=== PATIENT | female | born 1950 | race Caucasian/White ===

== ENCOUNTER 2020-11-19 08:33 | Day surgery (SDC) | payer MEDICARE ==
[~2020-11-19] VITALS: Ht 160 cm; Wt 64.5 kg
[~2020-11-19 08:33] MED LIST: BUPR100 PO; RANI150 PO
[2020-11-19] MEDS ORDERED: LISI5 PO (08:54)
[2020-11-19] MEDS ORDERED: NAPR220 PO (09:03)
[2020-11-19] MEDS ORDERED: SILVADENE20 GM TOP (09:04)
--- NOTE | 2020-11-19 10:24 | NUR ---
11/19/20 1024 Vickie Cochran EPI 0.15MG MIXED WITH BUPIVACAINE 0.5% 30ML FOR A MIXTURE OF BUPIVACAINE 0.5% W/EPI 1:200,000
== END 2020-11-19 11:44 | disposition home or self-care (01) ==
LOC: ORSCSDS 08:33
PROVIDERS: Podiatrist Foot & Ankle Surgery
PROC: 0JCQ0ZZ Extirpation of Matter from Right Foot Subcutaneous Tissue and Fascia, Open Approach (ICD-10-PCS; principal; 2020-11-19 10:00)
DX: S91.134A Puncture wound without foreign body of right lesser toe(s) without damage to nail, initial encounter (principal); F17.210 Nicotine dependence, cigarettes, uncomplicated; Z79.899 Other long term (current) drug therapy; I10 Essential (primary) hypertension
CPT/HCPCS: 88305; J0171; J0690; J1100; J2250; J2370; J2405; J2704; J3010; J7120

== ENCOUNTER 2021-09-07 13:47 | Inpatient (IN) | payer OTHER, MEDICARE ==
[~2021-09-07] VITALS: Ht 162.6 cm; Wt 65.8 kg
[~2021-09-07 13:47] MED LIST changes: +LISI5 PO; +NAPR220 PO; +SILVADENE20 GM TOP
[2021-09-07 19:40] LABS: Influenza A, PCR NEGATIVE (NEGATIVE); Influenza B, PCR NEGATIVE (NEGATIVE); Resp Syncytial Virus, PCR NEGATIVE (NEGATIVE); SARS-Cov-2 (COVID-19) PCR, MMC NEGATIVE (NEGATIVE)
[2021-09-07 21:20] LABS: BASOPHILS ABSOLUTE AUTO 0.07 K/mm3 (0.00-0.23); BASOPHILS PERCENT AUTO 1 % (0-2); EOSINOPHILS ABSOLUTE AUTO 0.03 K/mm3 (0.00-0.68); EOSINOPHILS PERCENT AUTO 0 % (0-6); Hematocrit 48.1 % (33.0-51.0); Hemoglobin 15.1 g/dL (11.5-16.0); IMMATURE GRAN ABSOLUTE AUTO 0.07 K/mm3 (0.00-0.10); IMMATURE GRAN PERCENT AUTO 1 % (0-1); LYMPHOCYTES ABSOLUTE AUTO 1.21 K/mm3 (0.84-5.20); LYMPHOCYTES PERCENT AUTO 15 % (21-46); MONOCYTES ABSOLUTE AUTO 0.53 K/mm3 (0.16-1.47); MONOCYTES PERCENT AUTO 7 % (4-13); Mean Corpuscular HGB Conc 31.4 g/dL (31.5-36.5); Mean Corpuscular Volume 102 fL (80-100); NEUTROPHILS ABSOLUTE AUTO 6.09 K/mm3 (1.96-9.15); NEUTROPHILS PERCENT AUTO 76 % (41-73); Platelet Count 287 K/mm3 (150-400); RDW Coefficient Variation 12.6 % (11.7-14.2); RDW Standard Deviation 47.1 fL (35.1-46.3); Red Blood Cell Count 4.72 M/mm3 (3.80-5.20)
[2021-09-07 22:23] LABS: Alanine Aminotransfer (ALT/SGP 25 U/L (12-78); Albumin, Blood 3.2 g/dL (3.4-5.0); Alk Phos 93 U/L (50-136); Anion Gap 5 mmol/L (6-16); Aspartate Aminotrans (AST/SGOT 21 U/L (12-37); Bilirubin, Total 0.4 mg/dL (0.1-1.0); Blood Urea Nitrogen 13 mg/dL (8-24); Bun/Creatinine Ratio 18.1 (12.0-20.0); CO2, Blood 27 mmol/L (21-32); Calcium, Blood 8.5 mg/dL (8.5-10.1); Chloride, Blood 107 mmol/L (98-108); Creatinine, Blood 0.72 mg/dL (0.40-1.00); Globulin, Blood 3.3 g/dL (2.2-4.0); Glomerular Filtration Rate >60 (60-); Glucose, Blood 136 mg/dL (70-99); Potassium, Blood 3.8 mmol/L (3.5-5.5); Sodium, Blood 139 mmol/L (136-145); Total Protein, Blood 6.5 g/dL (6.4-8.2)
--- NOTE | 2021-09-08 03:28 | NUR ---
PT ARRIVES TO THE FLOOR AT 2300 FROM ED. PT HERE FOR SURGERY TO L WRIST, NPO SINCE MIDNIGHT. PT A&OX4, AMBULATES FREELY IN ROOM AND IS ABLE TO MAKE NEEDS KNOWN. PAIN IS CONTROLLED WITH IV MORPHINE. WRIST WRAPED IN ELEONORA BANDAGE AND SPLINT APPLIED IN ED. VSS, PLEASANT WITH CARES AND CALLS APPROPRIATELY. WILL CONTINUE TO MONITOR.
--- NOTE | 2021-09-08 15:23 | NUR ---
SHIFT SUMMARY: LEFT WRIST PATIENT IS ALERT AND ORIENTED X4. VS ARE WNL AND IS ON RA. PAIN IS MANAGED WITH IV MORPHINE. SPLINT ON LEFT ARM IS IN PLACE AND IS C/D/I WITH SLING ON. PATIENT IS INDEP. IN THE ROOM. PATIENT IS VOIDING IS BATHROOM. PATIENT HAS BEEN NPO. AWAITING TO HEAR FROM DAY SURGERY IF PATIENT IS STILL GOING TO HAVE SURGERY TODAY. IV FLUIDS ARE RUNNING. CALLS APPROPRIATELY. CALL LIGHT WITHIN REACH.
--- NOTE | 2021-09-08 16:46 | NUR ---
REPORT RECIEVED FROM MARK FORTE. PT RESTING IN BED AT THIS TIME. NO ACUTE NEEDS OR CONCERNS.
--- NOTE | 2021-09-08 17:21 | NUR ---
FROM SURGICAL FLOOR TO [facility] ADMISSION STARTED TO UNIT ANNESTHESIA AND SURGEONS AT BEDSIDE.
--- NOTE | 2021-09-08 17:26 | NUR ---
PT TAKEN TO PACU BY NURSING STAFF VIA DELILAH
--- NOTE | 2021-09-09 03:27 | NUR ---
PT ARRIVES TO THE FLOOR FROM THE PACU AT 1999. PT IS A&OX4, INDEPENDENT IN BED AND IS ABLE TO MAKE NEEDS KNOWN. PT HAD ORIF OF THE DISTAL WRIST D/T FRACTURE. PT COMPLAINS OF 7-9 OUT OF 10 PAIN, PRN MORPHINE GIVEN. PT TOLERATING REGULAR DIET AND PO FLUIDS WITH NO NAUSEA. PT IS ABLE TO VIOD RIGHT AFTER SURGERY. BED ALARM ON PT D/T IMPULSIVITY, PT NOT CALLING WHEN UP TO VIOD. PT SLEEPS 7+ HOURS THIS SHIFT. WILL CONTINUE TO MONITOR
[2021-09-09 04:02] LABS: BASOPHILS ABSOLUTE AUTO 0.01 K/mm3 (0.00-0.23); BASOPHILS PERCENT AUTO 0 % (0-2); EOSINOPHILS PERCENT AUTO 0 % (0-6); Hematocrit 45.7 % (33.0-51.0); Hemoglobin 14.8 g/dL (11.5-16.0); IMMATURE GRAN ABSOLUTE AUTO 0.02 K/mm3 (0.00-0.10); IMMATURE GRAN PERCENT AUTO 0 % (0-1); LYMPHOCYTES ABSOLUTE AUTO 0.38 K/mm3 (0.84-5.20); LYMPHOCYTES PERCENT AUTO 5 % (21-46); MONOCYTES ABSOLUTE AUTO 0.22 K/mm3 (0.16-1.47); MONOCYTES PERCENT AUTO 3 % (4-13); Mean Corpuscular HGB 31.4 pg (26.0-34.0); Mean Corpuscular HGB Conc 32.4 g/dL (31.5-36.5); Mean Platelet Volume 8.6 fL (9.1-12.4); NEUTROPHILS ABSOLUTE AUTO 7.73 K/mm3 (1.96-9.15); NEUTROPHILS PERCENT AUTO 93 % (41-73); Platelet Count 283 K/mm3 (150-400); RDW Coefficient Variation 12.1 % (11.7-14.2); RDW Standard Deviation 43.9 fL (35.1-46.3); Red Blood Cell Count 4.72 M/mm3 (3.80-5.20); White Blood Cell Count 8.36 K/mm3 (4.00-11.30)
[2021-09-09 04:03] LABS: Mean Corpuscular Volume 97 fL (80-100)
[2021-09-09 04:19] LABS: Albumin, Blood 3.5 g/dL (3.4-5.0); Anion Gap 7 mmol/L (6-16); Blood Urea Nitrogen 11 mg/dL (8-24); Bun/Creatinine Ratio 17.9 (12.0-20.0); CO2, Blood 27 mmol/L (21-32); Calcium, Blood 9.3 mg/dL (8.5-10.1); Chloride, Blood 103 mmol/L (98-108); Creatinine, Blood 0.62 mg/dL (0.40-1.00); Glomerular Filtration Rate >60 (60-); Glucose, Blood 143 mg/dL (70-99); Magnesium, Blood 1.9 mg/dL (1.6-2.4); Phosphorus, Blood 2.8 mg/dL (2.5-4.9); Potassium, Blood 4.3 mmol/L (3.5-5.5); Sodium, Blood 137 mmol/L (136-145)
[2021-09-09] MEDS ORDERED: Crestor20 MG PO (14:23)
[2021-09-09] MEDS ORDERED: LACT10SY PO (14:24)
[2021-09-09] MEDS ORDERED: MELO7.5 PO (14:24)
[2021-09-09] MEDS ORDERED: ROXICODONE5 MG PO (14:26)
--- NOTE | 2021-09-09 15:16 | NUR ---
DISCHARGE SUMMARY PT DRESSED INTO PERSONL CLOTHES W/ ASSISTANCE FROM HER . PT WAS OFFERED WHEELCHAIR ESCORT, WHICH SHE REFUSED. PT AMBULATED W/ ASSISTANCE FROM HER TO THE EXIT. PT TO LEAVE FACILITY VIA PERSONAL VEHICLE.
== END 2021-09-09 14:08 | disposition home or self-care (01) | DRG 512 ==
LOC: ER 13:47 → SURS 21:54
PROVIDERS: Emergency Medicine; Family Medicine; Orthopaedic Surgery; ADMIT Internal Medicine
PROC: 0PSJ04Z Reposition Left Radius with Internal Fixation Device, Open Approach (ICD-10-PCS; principal; 2021-09-08 15:00)
DX: S52.572A Other intraarticular fracture of lower end of left radius, initial encounter for closed fracture (principal); I10 Essential (primary) hypertension; F10.10 Alcohol abuse, uncomplicated; Z20.822 Contact with and (suspected) exposure to COVID-19; E78.5 Hyperlipidemia, unspecified; S52.612A Displaced fracture of left ulna styloid process, initial encounter for closed fracture; Z72.0 Tobacco use; Z71.6 Tobacco abuse counseling; Z90.710 Acquired absence of both cervix and uterus; Z98.890 Other specified postprocedural states; Z79.899 Other long term (current) drug therapy; W01.190A Fall on same level from slipping, tripping and stumbling with subsequent striking against furniture, initial encounter
CPT/HCPCS: 0241U; 12002; 25605; 36415; 71045; 73090; 73100; 73130; 76000; 80053; 80069; 83735; 85025; 93005; 93010; 96374; 97110; 97116; 97161; 97165; 99152; 99153; 99285-25; A9270; C1713; J0171; J0690; J1100; J2250; J2270; J2370; J2405; J2704; J3010; J7030; J7120